=== PATIENT | male | born 1970 | race Caucasian/White ===

== ENCOUNTER 2024-05-23 14:28 | Emergency (ER) | payer OTHER ==
[~2024-05-23] VITALS: Ht 175.3 cm; Wt 104.3 kg
[2024-05-23] MEDS ORDERED: MECL-159 PO ×2 (14:40→19:00)
[2024-05-23] MEDS ORDERED: ALLO100T PO (14:40)
[2024-05-23] MEDS ORDERED: MECLIZINE HCL 25 MG TABLET ONE (15:33)
[2024-05-23] MEDS: MECLIZINE HCL 25 MG TABLET PO ONE (15:36)
[2024-05-23 15:49] LABS: BASOPHILS % (AUTO) 0.2 % (0.0-2.0); CALCIUM 9.8 mg/dL (8.5-10.1); CREATININE 1.1 mg/dL (0.6-1.3); EOSINOPHILS % (AUTO) 0.2 % (0.0-7.0); HEMATOCRIT 45.3 % (36.7-47.1); HEMOGLOBIN 15.3 g/dL (12.5-16.3); LYMPHOCYTES # (AUTO) 1.2 K/uL (0.8-4.8); LYMPHOCYTES % (AUTO) 11.6 % (20.5-51.5); MEAN CORPUSCULAR HGB CONC 34 g/dL (32.5-36.3); MEAN CORPUSCULAR VOLUME 91.6 fL (73.0-96.2); MONOCYTES # (AUTO) 0.5 K/uL (0.1-1.30); NEUTROPHILS # (AUTO) 8.9 K/uL (1.8-8.9); PLATELET COUNT (AUTO) 204 K/uL (152-348); POTASSIUM 3.8 mmol/L (3.5-5.1); RED BLOOD CELL COUNT(AUTO) 4.95 MIL/uL (4.06-5.63); RED CELL DISTRIBUTION WIDTH 13.2 % (12.1-16.2); WHITE BLOOD COUNT (AUTO) 10.7 K/uL (3.6-10.2)
[2024-05-23 15:50] LABS: DIFFERENTIAL COMMENT 1
[2024-05-23] MEDS ORDERED: IOHEXOL 350 100 ML INFUS..BTL ONE (17:19)
[2024-05-23] MEDS ORDERED: SWABABLE VALVE TRANSFER SET EA MC ONE (17:20)
[2024-05-23] MEDS ORDERED: IV NORMAL SALINE 250 ML IV ONE (17:20)
[2024-05-23 19:26] VITALS: BP 133/66; O2SAT 93
== END 2024-05-23 19:27 | disposition home or self-care (01) ==
LOC: ER 14:28
DX: R42 Dizziness and giddiness (principal); E88.810 Metabolic syndrome; M54.2 Cervicalgia; G43.909 Migraine, unspecified, not intractable, without status migrainosus; Z79.899 Other long term (current) drug therapy; Z88.0 Allergy status to penicillin; Z88.6 Allergy status to analgesic agent; Z86.69 Personal history of other diseases of the nervous system and sense organs; Z87.19 Personal history of other diseases of the digestive system
CPT/HCPCS: 99285; 80048; 82962; 85025; 36415; 72050; Q9967; A4606; A4663; J8597